=== PATIENT | female | born 1980 | race Caucasian/White ===

== ENCOUNTER 2016-08-12 19:22 | Emergency (ER) | payer OTHER ==
[2016-08-12 21:16] LABS: BASOPHIL % 0.6 % (0-2); PLATELET COUNT 201 x10^3mcL (130-400); RED CELL DISTRIBUTION WIDTH 13.9 % (11.5-14.5)
[2016-08-12 21:17] LABS: CALCIUM 9.1 mg/dL (8.5-10.1); CHLORIDE SERUM 103 mmol/L (98-107); CREATININE SERUM 0.7 mg/dL (0.6-1.0); GFR1 > 60 mL/min; GLUCOSE SERUM 104 mg/dL (74-106); POTASSIUM SERUM 4.1 mmol/L (3.5-5.1); SODIUM SERUM 140 mmol/L (136-145)
[2016-08-12 21:30] LABS: FREE T4 0.76 ng/dL (0.76-1.46); MAGNESIUM 1.9 mg/dL (1.8-2.4)
[2016-08-12 22:33] VITALS: BP 102/52
== END 2016-08-12 22:33 | disposition home or self-care (01) ==
LOC: ED 19:22
PROVIDERS: Emergency Medicine
DX: R07.89 Other chest pain (principal); R00.2 Palpitations; J44.9 Chronic obstructive pulmonary disease, unspecified; F41.9 Anxiety disorder, unspecified; Z88.6 Allergy status to analgesic agent
CPT/HCPCS: 84439; Q0092